=== PATIENT | female | born 1960 | race Caucasian/White ===

== ENCOUNTER → 2017-11-25 | Outpatient (CLI) | payer MEDICAID ==
[~2017-11-25] MED LIST: ALBU2.5V4 NEB; AMIT100T2 PO; ASPI-875 PO; ATEN100T PO; ATEN50TA PO; AZIT250T12 PO; AZIT500T PO; BUME1TAB4 PO; CEFD300C3 PO; CLON1TAB3 PO; CLON1TAB4 PO; CYCL10TA9 PO; DCS100C PO; DESV100T PO; DOCU100T7 PO; ESCI20TA2 PO; ESCI20TA38 PO; ESCI20TA45 PO; ESCI5TAB PO; ESCT10T PO; FURO20TA4 PO; FURO40TA4 PO; GABA600T2 PO; GBPN300C PO; GBPN600T PO; LORA0.5T PO; MORP100C16 PO; MORP100T PO; MORP100T37 PO; MORP100T8 PO; MORP15TA8 PO; MORP30TA PO; MORPHINE PO; POTA10CA43 PO; POTA10TA10 PO; POTA8TAB PO; PRD20T PO; PRED10TA22 PO; RT-ALBUINH INH; SIMV20TA3 PO; TOPI50TA2 PO; TRIH2TAB2 PO; VARE0.5T PO; VARE1TAB17 PO; ZLP10T PO; ZLP5T PO; ZOLP10TA PO; ZOLP10TA5 PO
--- NOTE | 2017-11-25 17:54 | Diagnostic Imaging Report ---
CLINICAL INDICATION: Patient with ovarian cancer five years ago and had a had a recent bleeding episode a day ago. Patient has history of hysterectomy and bilateral oophorectomy. EXAM: Transabdominal and transvaginal ultrasound of the pelvis. COMPARISON: None. FINDINGS AND IMPRESSION: Evaluation of the pelvis shows no significant abnormality as visualized. There is trace free fluid in the pelvis. There is no evidence of mass seen on this ultrasound exam. Dictated by: Dictated on workstation # [id number]
== END ==
LOC: RAD 15:15
PROVIDERS: ATTEND Nurse Practitioner Family
DX: N93.9 Abnormal uterine and vaginal bleeding, unspecified (principal); Z90.710 Acquired absence of both cervix and uterus; Z90.722 Acquired absence of ovaries, bilateral; Z85.43 Personal history of malignant neoplasm of ovary
CPT/HCPCS: 76830; 76856

== ENCOUNTER → 2018-01-22 | Outpatient (CLI) | payer MEDICAID ==
[~2018-01-22] MED LIST changes: +CLON1TAB13 PO; -CLON1TAB4 PO
== END ==
LOC: CARD 13:29
PROVIDERS: ATTEND Pediatrics
DX: G47.33 Obstructive sleep apnea (adult) (pediatric) (principal); I35.0 Nonrheumatic aortic (valve) stenosis
CPT/HCPCS: 93306

== ENCOUNTER 2018-05-17 08:11 | Emergency (ER) | payer MEDICAID ==
[~2018-05-17] VITALS: Ht 170.2 cm; Wt 135.2 kg
--- OUTSIDE RECORDS SUMMARY | 2018-05-17 08:19 | XMS REPORT | Continuity of Care Document ---
Author Author [facility] Organization [facility] Address Unknown Phone Unavailable Allergies Active Description Code Type Severity Reaction Onset Reported/Identified Relationship to Patient Clinical Status Yes No Known Drug Allergies [id number] Drug Allergy Unknown N/A 08/23/2007 Medications There is no data. Problems Date Dx Coded Attending Type Code Diagnosis Diagnosed By 02/03/2013 JANETHNDER DOFREIDAPATTI S Ot 272.4 HYPERLIPIDEMIA NEC/NOS 02/03/2013 JANETHNDER DO PATTI S Ot 276.8 HYPOPOTASSEMIA 02/03/2013 JANETHNDER DO PATTI S Ot 300.00 ANXIETY STATE NOS 02/03/2013 ORENDER DO PATTI S Ot 305.1 TOBACCO USE DISORDER 02/03/2013 ORENDER DO, PATTI S Ot 311 DEPRESSIVE DISORDER NEC 02/03/2013 JANETHNDER DO, PATTI S Ot 338.4 CHRONIC PAIN SYNDROME 02/03/2013 ORENDER DO, PATTI S Ot 401.9 HYPERTENSION NOS 02/03/2013 ORENDER DO, PATTI S Ot 486 PNEUMONIA, ORGANISM NOS 02/03/2013 JANETHNDER DO, PATTI S Ot 491.22 OBSTRUCTIVE CHRONIC BRONCHITIS WITH ACUT 02/03/2013 ORENDER DO, PATTI S Ot 518.81 ACUTE RESPIRATORY FAILURE 02/03/2013 JANETHNDER DO, PATTI S Ot 530.81 ESOPHAGEAL REFLUX 02/03/2013 JANETHNDER DO, PATTI S Ot 564.00 UNSPEC CONSTIPATION 02/03/2013 JANETHNDER DO PATTI S Ot 715.90 OSTEOARTHROS NOS-UNSPEC 02/03/2013 JANETHNDER DO PATTI S Ot 724.5 BACKACHE NOS 02/03/2013 JANETHNDISIS DO PATTI S Ot V58.69 OTH MED,LT,CURRENT USE 05/07/2013 VINAYAK PUENTE MD Ot 272.0 PURE HYPERCHOLESTEROLEM 05/07/2013 VINAYAK PUENTE MD Ot 272.4 HYPERLIPIDEMIA NEC/NOS 05/07/2013 VINAYAK PUENTE MD Ot 278.00 OBESITY, NOS 05/07/2013 VINAYAK PUENTE MD Ot 300.00 ANXIETY STATE NOS 05/07/2013 VINAYAK PUENTE MD Ot 305.1 TOBACCO USE DISORDER 05/07/2013 VINAYAK PUENTE MD Ot 311 DEPRESSIVE DISORDER NEC 05/07/2013 VINAYAK PUENTE MD Ot 327.23 OBSTRUCTIVE SLEEP APNEA (ADULT) (PEDIATR 05/07/2013 VINAYAK PUENTE MD Ot 338.4 CHRONIC PAIN SYNDROME 05/07/2013 VINAYAK PUENTE MD Ot 401.9 HYPERTENSION NOS 05/07/2013 VINAYAK PUENTE MD Ot 496 CHR AIRWAY OBSTRUCT NEC 05/07/2013 VINAYAK PUENTE MD Ot 518.0 PULMONARY COLLAPSE 05/07/2013 VINAYAK PUNETE MD Ot 518.84 ACUTE AND CHRONIC RESPIRATORY FAILURE 05/07/2013 VINAYAK PUENTE MD Ot 530.81 ESOPHAGEAL REFLUX 05/07/2013 VINAYAK PUENTE MD Ot 564.09 OTHER CONSTIPATION 05/07/2013 VINAYAK PUENTE MD Ot 715.90 OSTEOARTHROS NOS-UNSPEC 05/07/2013 VINAYAK PUENTE MD Ot 724.2 LUMBAGO 05/07/2013 VINAYAK PUENTE MD Ot V04.81 ND FOR PROPHYLACTIC VACCIN AND INOCULATI 05/07/2013 VINAYAK PUENTE MD Ot V85.41 BODY MASS INDEX 40.0-44.9, ADULT 06/19/2014 WANDY MUNOZ Ot 724.2 LUMBAGO 06/19/2014 WANDY MUNOZ Ot 782.3 EDEMA 01/18/2015 MELLISA NOBLE MD Ot 300.00 ANXIETY STATE NOS 01/18/2015 MELLISA NOBLE MD Ot 786.05 SHORTNESS OF BREATH 01/30/2016 JAROCHO NAQVI DO Ot I10 ESSENTIAL (PRIMARY) HYPERTENSION 01/30/2016 JAROCHO NAQVI DO Ot J44.9 CHRONIC OBSTRUCTIVE PULMONARY DISEASE, U 01/30/2016 JAROCHO NAQVI DO Ot 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 02/09/2016 TYLOR DOBBS DO Ot E87.6 HYPOKALEMIA 02/09/2016 TYLOR DOBBS DO Ot F32.9 MAJOR DEPRESSIVE DISORDER, SINGLE EPISOD 02/09/2016 DOBBS DO, TYLOR Ot F41.0 PANIC DISORDER WITHOUT AGORAPHOBIA 02/09/2016 DILIA YAÑEZ TYLOR Ot I12.9 HYPERTENSIVE CHRONIC KIDNEY DISEASE W ST 02/09/2016 GLENN DOBBS DOI Ot J44.1 CHRONIC OBSTRUCTIVE PULMONARY DISEASE W 02/09/2016 GLENN DOBBS DOI Ot K59.00 CONSTIPATION, UNSPECIFIED 02/09/2016 DILIA YAÑEZ TYLOR Ot M17.0 BILATERAL PRIMARY OSTEOARTHRITIS OF KNEE 02/09/2016 DILIA YAÑEZ TYLOR Ot N18.9 CHRONIC KIDNEY DISEASE, UNSPECIFIED 02/09/2016 DILIA YAÑEZ TYLOR Ot Z23 ENCOUNTER FOR IMMUNIZATION 11/26/2017 RHETT RODRIGUEZ RN RESEARCH Ot N93.9 ABNORMAL UTERINE AND VAGINAL BLEEDING, U 11/26/2017 RHETT RODRIGUEZ RN RESEARCH Ot Z85.43 PERSONAL HISTORY OF MALIGNANT NEOPLASM O 11/26/2017 RHETT RODRIGUEZ RN RESEARCH Ot Z90.710 ACQUIRED ABSENCE OF BOTH CERVIX AND UTER 11/26/2017 RHETT RODRIGUEZ RN RESEARCH Ot Z90.722 ACQUIRED ABSENCE OF OVARIES, BILATERAL 11/26/2017 RHETT RODRIGUEZ RN RESEARCH Ot N93.9 ABNORMAL UTERINE AND VAGINAL BLEEDING, U 11/26/2017 RHETT RODRIGUEZ RN RESEARCH Ot Z85.43 PERSONAL HISTORY OF MALIGNANT NEOPLASM O 11/26/2017 RHETT RODRIGUEZ RN RESEARCH Ot Z90.710 ACQUIRED ABSENCE OF BOTH CERVIX AND UTER 11/26/2017 RHETT RODRIGUEZ RN RESEARCH Ot Z90.722 ACQUIRED ABSENCE OF OVARIES, BILATERAL 01/26/2018 LUIS TILLMAN, DEBRA Martin Ot G47.33 OBSTRUCTIVE SLEEP APNEA (ADULT) (PEDIATR 01/26/2018 DEBRA SMITH MD Ot I35.0 NONRHEUMATIC AORTIC (VALVE) STENOSIS 02/03/2018 DEBRA SMITH MD Ot G47.33 OBSTRUCTIVE SLEEP APNEA (ADULT) (PEDIATR 02/03/2018 DEBRA SMITH MD Ot I35.0 NONRHEUMATIC AORTIC (VALVE) STENOSIS Procedures There is no data. Results Test Result Range Complete blood count (CBC) with automated white blood cell (WBC) differential - 02/07/16 17:10 Blood leukocytes automated count (number/volume) 5.4 10*3/uL 4.3-11.0 Blood erythrocytes automated count (number/volume) 5.21 10*6/uL 4.35-5.85 Venous blood hemoglobin measurement (mass/volume) 14.0 g/dL 11.5-16.0 Blood hematocrit (volume fraction) 41 % 35-52 Automated erythrocyte mean corpuscular volume 78 [foz_us] 80-99 Automated erythrocyte mean corpuscular hemoglobin (mass per erythrocyte) 27 pg 25-34 Automated erythrocyte mean corpuscular hemoglobin concentration measurement ( mass/volume) 34 g/dL 32-36 Automated erythrocyte distribution width ratio 13.7 % 10.0-14.5 Automated blood platelet count (count/volume) 169 10*3/uL 130-400 Automated blood platelet mean volume measurement 10.8 [foz_us] 7.4-10.4 Automated blood neutrophils/100 leukocytes 50 % 42-75 Automated blood lymphocytes/100 leukocytes 34 % 12-44 Blood monocytes/100 leukocytes 9 % 0-12 Automated blood eosinophils/100 leukocytes 7 % 0-10 Automated blood basophils/100 leukocytes 1 % 0-10 Blood neutrophils automated count (number/volume) 2.7 10*3 1.8-7.8 Blood lymphocytes automated count (number/volume) 1.8 10*3 1.0-4.0 Blood monocytes automated count (number/volume) 0.5 10*3 0.0-1.0 Automated eosinophil count 0.4 10*3/uL 0.0-0.3 Automated blood basophil count (count/volume) 0.1 10*3/uL 0.0-0.1 Comprehensive metabolic panel - 02/07/16 17:10 Serum or plasma sodium measurement (moles/volume) 139 mmol/L 135-145 Serum or plasma potassium measurement (moles/volume) 3.5 mmol/L 3.6-5.0 Serum or plasma chloride measurement (moles/volume) 105 mmol/L 98-107 Carbon dioxide 23 mmol/L 21-32 Serum or plasma anion gap determination (moles/volume) 11 mmol/L 5-14 Serum or plasma urea nitrogen measurement (mass/volume) 10 mg/dL 7-18 Serum or plasma creatinine measurement (mass/volume) 1.33 mg/dL 0.60-1.30 Serum or plasma urea nitrogen/creatinine mass ratio 8 NRG Serum or plasma creatinine measurement with calculation of estimated glomerular filtration rate 42 NRG Serum or plasma glucose measurement (mass/volume) 95 mg/dL 70-105 Serum or plasma calcium measurement (mass/volume) 9.1 mg/dL 8.5-10.1 Serum or plasma total bilirubin measurement (mass/volume) 0.6 mg/dL 0.1-1.0 Serum or plasma alkaline phosphatase measurement (enzymatic activity/volume) 83 U/L 40-136 Serum or plasma aspartate aminotransferase measurement (enzymatic activity/ volume) 30 U/L 5-34 Serum or plasma alanine aminotransferase measurement (enzymatic activity/volume ) 38 U/L 0-55 Serum or plasma protein measurement (mass/volume) 6.9 g/dL 6.4-8.2 Serum or plasma albumin measurement (mass/volume) 4.3 g/dL 3.2-4.5 LIPID PANEL - 05/22/17 10:55 CHOLESTEROL, TOTAL 134 mg/dL <200 HDL CHOLESTEROL 27 mg/dL >50 TRIGLYCERIDES 226 mg/dL <150 LDL-CHOLESTEROL 76 mg/dL (calc) NRG CHOL/HDLC RATIO 5.0 (calc) <5.0 NON HDL CHOLESTEROL 107 mg/dL (calc) <130 CMP - 05/22/17 10:55 GLUCOSE 90 mg/dL 65-99 UREA NITROGEN (BUN) 5 mg/dL 7-25 CREATININE 1.06 mg/dL 0.50-1.05 eGFR NON-AFR. AUSTRIAN 59 mL/min/1.73m2 > OR=60 eGFR 69 mL/min/1.73m2 > OR=60 BUN/CREATININE RATIO 5 (calc) 6-22 SODIUM 140 mmol/L 135-146 POTASSIUM 4.0 mmol/L 3.5-5.3 CHLORIDE 95 mmol/L 98-110 CARBON DIOXIDE 37 mmol/L 20-31 CALCIUM 9.5 mg/dL 8.6-10.4 PROTEIN, TOTAL 6.8 g/dL 6.1-8.1 ALBUMIN 4.3 g/dL 3.6-5.1 GLOBULIN 2.5 g/dL (calc) 1.9-3.7 ALBUMIN/GLOBULIN RATIO 1.7 (calc) 1.0-2.5 BILIRUBIN, TOTAL 0.6 mg/dL 0.2-1.2 ALKALINE PHOSPHATASE 87 U/L 33-130 AST 33 U/L 10-35 ALT 36 U/L 6-29 CBC - 05/22/17 10:55 WHITE BLOOD CELL COUNT 5.9 Thousand/uL 3.8-10.8 RED BLOOD CELL COUNT 4.85 Million/uL 3.80-5.10 HEMOGLOBIN 13.0 g/dL 11.7-15.5 HEMATOCRIT 40.9 % 35.0-45.0 MCV 84.3 fL 80.0-100.0 MCH 26.8 pg 27.0-33.0 MCHC 31.8 g/dL 32.0-36.0 RDW 13.1 % 11.0-15.0 PLATELET COUNT 161 Thousand/uL 140-400 MPV 11.7 fL 7.5-12.5 ABSOLUTE NEUTROPHILS 2974 cells/uL 1347-5824 ABSOLUTE LYMPHOCYTES 1988 cells/uL 850-3900 ABSOLUTE MONOCYTES 478 cells/uL 200-950 ABSOLUTE EOSINOPHILS 389 cells/uL 15-500 ABSOLUTE BASOPHILS 71 cells/uL 0-200 NEUTROPHILS 50.4 % NRG LYMPHOCYTES 33.7 % NRG MONOCYTES 8.1 % NRG EOSINOPHILS 6.6 % NRG BASOPHILS 1.2 % NRG THYROID ANALYZER - 05/22/17 10:55 TSH 2.48 mIU/L NRG VITAMIN D, 25-H - 05/22/17 10:55 VITAMIN D,25-OH,TOTAL,IA 29 ng/mL 30-100 A1C - 05/22/17 10:55 HEMOGLOBIN A1c 5.3 % of total Hgb <5.7 PDM - 09 PANEL (PROFILE 1) - 10/21/17 16:01 Prescribed Drug 1 Morphine NRG Creatinine 43.8 mg/dL > or=20.0 pH 5.53 4.5 - 9.0 Oxidant NEGATIVE mcg/mL <200 Amphetamines NEGATIVE ng/mL <500 medMATCH Amphetamines CONSISTENT NRG Benzodiazepines POSITIVE ng/mL <100 Marijuana Metabolite NEGATIVE ng/mL <20 medMATCH Marijuana Metab CONSISTENT NRG Cocaine Metabolite NEGATIVE ng/mL <150 medMATCH Cocaine Metab CONSISTENT NRG Opiates POSITIVE ng/mL <100 Oxycodone NEGATIVE ng/mL <100 medMATCH Oxycodone CONSISTENT NRG COMMENT NRG Alphahydroxyalprazolam NEGATIVE ng/mL <25 medMATCH aOH alprazolam CONSISTENT NRG Alphahydroxymidazolam NEGATIVE ng/mL <50 medMATCH aOH midazolam CONSISTENT NRG Alphahydroxytriazolam NEGATIVE ng/mL <50 medMATCH aOH triazolam CONSISTENT NRG Aminoclonazepam 411 ng/mL <25 medMATCH Aminoclonazepam INCONSISTENT NRG Hydroxyethylflurazepam NEGATIVE ng/mL <50 medMATCH OH,Et flurazepam CONSISTENT NRG Lorazepam NEGATIVE ng/mL <50 medMATCH Lorazepam CONSISTENT NRG Nordiazepam NEGATIVE ng/mL <50 medMATCH Nordiazepam CONSISTENT NRG Oxazepam NEGATIVE ng/mL <50 medMATCH Oxazepam CONSISTENT NRG Temazepam NEGATIVE ng/mL <50 medMATCH Temazepam CONSISTENT NRG Codeine NEGATIVE ng/mL <50 medMATCH Codeine CONSISTENT NRG Hydrocodone NEGATIVE ng/mL <50 medMATCH Hydrocodone CONSISTENT NRG Hydromorphone 375 ng/mL <50 medMATCH Hydromorphone CONSISTENT NRG Morphine >97524 ng/mL <50 medMATCH Morphine CONSISTENT NRG Norhydrocodone NEGATIVE ng/mL <50 medMATCH Norhydrocodone CONSISTENT NRG Prescribed Drug 2 Morphine NRG Prescribed Drug 3 Morphine NRG Barbiturates NEGATIVE ng/mL <300 medMATCH Barbiturates CONSISTENT NRG Methadone Metabolite NEGATIVE ng/mL <100 medMATCH Methadone Metab CONSISTENT NRG Phencyclidine NEGATIVE ng/mL <25 medMATCH Phencyclidine CONSISTENT NRG CA 125 - 10/23/17 12:50 CA 125 TNP U/mL NRG CA 125 - 10/23/17 13:09 CA 125 3 U/mL <35 CULTURE, URINE - 11/06/17 16:50 CULTURE, URINE, ROUTINE SEE NOTE NRG CBC - 11/16/17 14:13 WHITE BLOOD CELL COUNT 6.3 Thousand/uL 3.8-10.8 RED BLOOD CELL COUNT 4.16 Million/uL 3.80-5.10 HEMOGLOBIN 11.4 g/dL 11.7-15.5 HEMATOCRIT 35.3 % 35.0-45.0 MCV 84.9 fL 80.0-100.0 MCH 27.4 pg 27.0-33.0 MCHC 32.3 g/dL 32.0-36.0 RDW 12.7 % 11.0-15.0 PLATELET COUNT 184 Thousand/uL 140-400 MPV 11.0 fL 7.5-12.5 ABSOLUTE NEUTROPHILS 3131 cells/uL 4290-4153 ABSOLUTE LYMPHOCYTES 2394 cells/uL 850-3900 ABSOLUTE MONOCYTES 422 cells/uL 200-950 ABSOLUTE EOSINOPHILS 290 cells/uL 15-500 ABSOLUTE BASOPHILS 63 cells/uL 0-200 NEUTROPHILS 49.7 % NRG LYMPHOCYTES 38.0 % NRG MONOCYTES 6.7 % NRG EOSINOPHILS 4.6 % NRG BASOPHILS 1.0 % NRG Encounters ACCT No. Visit Date/Time Discharge Status Pt. Type Provider Facility Loc./Unit Complaint [id number] 02/02/2018 10:25:00 02/02/2018 23:59:59 CLS Preadmit DEBRA SMITH MD [facility] SLEEP OBSTRUCTIVE SLEEP APNEA [id number] 01/22/2018 13:29:00 01/22/2018 23:59:59 CLS Outpatient DEBRA SMITH MD [facility] CARD OBSTRUCTIVE SLEEP APNEA SYNDROME [id number] 11/25/2017 15:15:00 11/25/2017 23:59:59 CLS Outpatient RHETT RODRIGUEZ RN RESEARCH [facility] RAD ABN VAGINAL BLEEDING [id number] 02/07/2016 21:00:00 02/09/2016 14:34:00 DIS Inpatient TYLOR DOBBS DO [facility] 4TH COPD EXACERBATION WITH HYPOXIA [id number] 01/30/2016 03:56:00 01/30/2016 04:11:00 DIS Emergency JAROCHO NAQVI DO [facility] ER COPD [id number] 01/18/2015 07:40:00 01/18/2015 10:42:00 DIS Emergency MELLISA NOBLE MD [facility] ER SOA [id number] 06/19/2014 21:14:00 06/19/2014 23:15:00 DIS Emergency WANDY MUNOZ [facility] ER BILAT LEG/ANKLE SWELLING [id number] 05/05/2013 19:24:00 05/07/2013 14:25:00 DIS Inpatient VINAYAK PUENTE MD [facility] 4TH RESPIRATORY FAILURE, COPD EXACERBATION [id number] 01/31/2013 08:37:00 02/03/2013 13:08:00 DIS Inpatient PATTI SWIFT DO [facility] 4TH ACUTE RESPIRATORY FAILURE COPD EXACERBATION [id number] 05/14/2018 14:30:00 ACT Outpatient LUIS TILLMAN, DEBRA Martin [facility] [id number] 11/16/2017 16:40:00 Document Registration [id number] 11/06/2017 10:35:00 Document Registration [id number] 10/23/2017 12:50:00 Document Registration [id number] 10/23/2017 11:35:00 Document Registration [id number] 10/21/2017 14:40:00 Document Registration [id number] 05/22/2017 11:00:00 Document Registration
--- NOTE | 2018-05-17 08:20 | ED Respiratory ---
General Stated Complaint: SOA Source: patient Exam Limitations: no limitations History of Present Illness Date Seen by Provider: May 17, 2018 Time Seen by Provider: 08:08 Initial Comments Patient presents the ER by EMS with chief complaint for the past through to 3 days she's had worsening shortness of breath, coughing productive of sputum. EMS reports he got up walked out to the por to get onto their gurney. She is not seeing anybody for this. She has a history of COPD and on baseline 2 L oxygen by nasal cannula satting at 98%. She does not know she had a fever or chills. She says she's been using her rescue inhaler about twice a day for the past couple days. Her last dose was around 5:00 this morning, 3 hours ago. She' s not having any pain anywhere and denies nausea, diarrhea or constipation. She' s not been on antibiotics or steroids the past 6 months. Allergies and Home Medications Allergies Coded Allergies: No Known Drug Allergies (Verified , 08/23/07) Home Medications Albuterol Sulfate 2.5 Mg/3 Ml Vial.neb, 2.5 MG NEB Q4H PRN for SHORTNESS OF BREATH, (Reported) Albuterol Sulfate 8.5 Gm Hfa.aer.ad, 2 PUFF INH Q4H PRN for SHORTNESS OF BREATH, (Reported) Amitriptyline HCl 100 Mg Tablet, 100 MG PO HS, (Reported) Atenolol 50 Mg Tablet, 50 MG PO BID, (Reported) Azithromycin 250 Mg Tablet, 250 MG PO DAILY Prescribed by: TYLOR DOBBS on 02/09/16 1218 Clonazepam 1 Mg Tablet, 1 MG PO TID, (Reported) Cyclobenzaprine HCl 10 Mg Tablet, 10 MG PO TID, (Reported) Docusate Sodium 100 Mg Tablet, 100 MG PO DAILY, (Reported) Escitalopram Oxalate 20 Mg Tablet, 20 MG PO BID, (Reported) Furosemide 40 Mg Tablet, 40 MG PO DAILY PRN for SWELLING, (Reported) Gabapentin 600 Mg Tablet, 600 MG PO TID PRN for PAIN, (Reported) Morphine Sulfate 100 Mg Tablet.er, 100 MG PO Q8H, (Reported) Morphine Sulfate 30 Mg Tablet, 30 MG PO TID PRN for BREAKTHROUGH PAIN, (Reported ) Potassium Chloride 10 Meq Tablet.er, 10 MEQ PO DAILY PRN for WHEN TAKING FUROSEMIDE, (Reported) Prednisone 10 Mg Tab.ds.pk, 10 MG PO DAILY Take 6 tabs(60mg)daily,decrease by 1 tab(10MG)daily. Prescribed by: TYLOR DOBBS on 02/09/16 1218 Simvastatin 20 Mg Tablet, 20 MG PO HS, (Reported) LAST FILLED #30 10-16-15 Zolpidem Tartrate 10 Mg Tablet, 10 MG PO HS PRN for SLEEP, (Reported) Patient Home Medication List Home Medication List Reviewed: Yes Review of Systems Review of Systems Constitutional: No chills, No diaphoresis, No fever EENTM: No ear discharge, No hearing loss, No ear pain Respiratory: cough, phlegm, short of breath, wheezing Cardiovascular: No chest pain, No edema Gastrointestinal: No abdominal pain, No constipation Genitourinary: No discharge, No dysuria : No Musculoskeletal: No back pain, No joint pain Past Flhettu-Okqesh-Tohsyu Hx Patient Social History Alcohol Use: Denies Use Recreational Drug Use: No Smoking Status: Current Everyday Smoker Former Smoker, Quit: May 11, 2012 Recent Hopitalizations: No Immunizations Up To Date PED Vaccines UTD: Yes Date of Pneumonia Vaccine: Apr 10, 2013 Date of Influenza Vaccine: May 07, 2013 Seasonal Allergies Seasonal Allergies: Yes Past Medical History Section, Hysterectomy, Orthopedic COPD Currently Using CPAP: No Currently Using BIPAP: No High Cholesterol, Hypertension Neuropathy Reproductive Disorders: No Female Reproductive Disorders: Denies CLIMBING GUIDE History: Hysterectomy Sexually Transmitted Disease: No HIV/AIDS: No UTI-Chronic Chronic Constipation Arthritis, Chronic Back Pain Loss of Vision: Denies Hearing Impairment: Denies Ovarian Anxiety, Bipolar, Depression Family Medical History Cancer 03 MOTHER, Onset:40's - 50 09 SISTER, Onset:25's - 30 Family history: Hypertension 03 FATHER, Onset:40's - 50 03 MOTHER, Onset:40's - 50 No Family History of: Chest pain Congenital heart disease Congestive heart failure Dementia Family history: Alzheimer's disease Family history: Diabetes mellitus No Pertinent Family Hx Physical Exam Vital Signs - First Documented 05/17/18 08:25 Temp 101.1 Pulse 85 Resp 20 B/P (MAP) 141/89 (106) Pulse Ox 97 O2 Delivery Nasal Cannula O2 Flow Rate 2.00 Capillary Refill : Height: 5'7.00" Weight: 250lbs. 1.0oz. 113.750198ce; 39.2 BMI Method:Stated General Appearance: WD/WN, mild distress, obese Eyes: Bilateral Eye Normal Inspection, Bilateral Eye PERRL, Bilateral Eye EOMI HEENT: PERRL/EOMI, normal ENT inspection, TMs normal, pharynx normal Respiratory: no respiratory distress, no accessory muscle use, rhonchi, wheezing Cardiovascular: normal peripheral pulses, regular rate, rhythm, no edema Gastrointestinal: normal bowel sounds, non tender, soft Neurologic/Psychiatric: alert, normal mood/affect, oriented x 3 Skin: normal color, warm/dry Progress/Results/Core Measures Suspected Sepsis SIRS Temperature: Pulse: Respiratory Rate: Laboratory Tests 05/17/18 08:38: White Blood Count 6.8 Blood Pressure / Mean: Laboratory Tests 05/17/18 08:38: Creatinine 1.08, Platelet Count 156, Total Bilirubin 0.5 Results/Orders Lab Results Laboratory Tests Test 05/17/18 08:38 Range/Units White Blood Count 6.8 4.3-11.0 10^3/uL Red Blood Count 4.35 4.35-5.85 10^6/uL Hemoglobin 11.4 L 11.5-16.0 G/DL Hematocrit 37 35-52 % Mean Corpuscular Volume 85 80-99 FL Mean Corpuscular Hemoglobin 26 25-34 PG Mean Corpuscular Hemoglobin Concent 31 L 32-36 G/DL Red Cell Distribution Width 14.4 10.0-14.5 % Platelet Count 156 130-400 10^3/uL Mean Platelet Volume 11.0 H 7.4-10.4 FL Neutrophils (%) (Auto) 73 42-75 % Lymphocytes (%) (Auto) 15 12-44 % Monocytes (%) (Auto) 9 0-12 % Eosinophils (%) (Auto) 3 0-10 % Basophils (%) (Auto) 1 0-10 % Neutrophils # (Auto) 5.0 1.8-7.8 X 10^3 Lymphocytes # (Auto) 1.0 1.0-4.0 X 10^3 Monocytes # (Auto) 0.6 0.0-1.0 X 10^3 Eosinophils # (Auto) 0.2 0.0-0.3 10^3/uL Basophils # (Auto) 0.0 0.0-0.1 10^3/uL Sodium Level 137 135-145 MMOL/L Potassium Level 4.2 3.6-5.0 MMOL/L Chloride Level 102 98-107 MMOL/L Carbon Dioxide Level 25 21-32 MMOL/L Anion Gap 10 5-14 MMOL/L Blood Urea Nitrogen 10 7-18 MG/DL Creatinine 1.08 0.60-1.30 MG/DL Estimat Glomerular Filtration Rate 53 BUN/Creatinine Ratio 9 Glucose Level 101 70-105 MG/DL Calcium Level 9.1 8.5-10.1 MG/DL Corrected Calcium 9.1 8.5-10.1 MG/DL Total Bilirubin 0.5 0.1-1.0 MG/DL Aspartate Amino Transf (AST/SGOT) 50 H 5-34 U/L Alanine Aminotransferase (ALT/SGPT) 61 H 0-55 U/L Alkaline Phosphatase 81 40-136 U/L Total Protein 7.1 6.4-8.2 GM/DL Albumin 4.0 3.2-4.5 GM/DL Micro Results Microbiology 05/17/18 Influenza Types A,B Antigen ([facility]) - Final, Complete My Orders Orders - FRANSISCA DOSS Cbc With Automated Diff (05/17/18 08:16) Comprehensive Metabolic Panel (05/17/18 08:16) Influenza A And B Antigens (05/17/18 08:16) Chest Pa/Lat (2 View) (05/17/18 08:16) Albuterol/Ipra Inhalation Soln (Duoneb I (05/17/18 08:30) Svn Small Volume Nebulizer (05/17/18 08:16) Medications Given in ED Current Medications Medications Dose Ordered Sig/Nathanael Route Start Time Stop Time Status Last Admin Dose Admin Albuterol/ Ipratropium 3 ml ONCE ONCE INH 05/17/18 08:30 05/17/18 08:31 DC 05/17/18 08:31 3 ML Vital Signs/I&O 05/17/18 05/17/18 08:25 08:33 Temp 101.1 Pulse 85 Resp 20 B/P (MAP) 141/89 (106) Pulse Ox 97 96 O2 Delivery Nasal Cannula Nasal Cannula O2 Flow Rate 2.00 2.00 Capillary Refill : Progress Note : Time: 09:39 Progress Note Patient's oxygen saturations are in the upper 90s on her baseline O2. Chest x- ray and labs confirm bronchitis. Her fever is probably due to the viral bronchitis. Negative for flu. She has improved breath sounds after nebulizer. Plan to send her home with humidifier, vapor rubs and increased use of her albuterol. Symptomatic support. Diagnostic Imaging Diagonstic Imaging: Xray Plain Films/CT/US/NM/MRI: chest Comments NAME: KIERAN HAINES [facility] REC#: [id number] PT STATUS: REG ER : 1960 PHYSICIAN: FRANSISCA DOSS MD ADMIT DATE: 05/17/18/ER Draft Date of Exam:05/17/18 CHEST PA/LAT (2 VIEW) INDICATION: Shortness of breath x 2 days. Cough. Chest congestion. TECHNIQUE: PA and lateral views of the chest were obtained at 9:30 AM. COMPARISON: 02/07/2016. FINDINGS: The heart and mediastinal silhouette are normal in appearance. The lungs appear clear. There is some peribronchial thickening. There is no pneumothorax or pleural fluid. IMPRESSION: Normal heart size. There is some peribronchial thickening but no focal consolidation, pneumothorax, or pleural fluid. Dictated on workstation # [id number] Dict: 05/17/18 0916 Trans: 05/17/18 0935 [id number] Interpreted by: IRASEMA KUMAR MD Electronically signed by: Reviewed: Reviewed by Me Departure Impression Primary Impression: COPD (chronic obstructive pulmonary disease) with acute bronchitis Disposition: HOME, SELF-CARE Condition: Stable Departure-Patient Inst. Decision time for Depature: 09:44 Referrals: DEBRA NIXON MD Patient Instructions: Acute Bronchitis, Adult (DC) Add. Discharge Instructions: Use vapor rubs such as Vicks or Mentholatum and humidifiers. Tylenol and Motrin for fever or misery. Use your albuterol inhaler 4 times a day [id number] for the next several days. Follow-up with primary care in the next 1-2 weeks. FRANSISCA DOSS May 17, 2018 08:20
[2018-05-17] MEDS ORDERED: RT-ALBUTEROL/IPRATROPIUM 3 ML (DUONEB) VIAL INH ONE (08:30)
[2018-05-17 08:44] LABS: BASOPHILS % (AUTO) 1 % (0-10); EOSINOPHILS # (AUTO) 0.2 10^3/uL (0.0-0.3); EOSINOPHILS % (AUTO) 3 % (0-10); HEMATOCRIT 37 % (35-52); HEMOGLOBIN 11.4 G/DL (11.5-16.0); LYMPHOCYTES % (AUTO) 15 % (12-44); MEAN CORPUSCULAR HEMOGLOBIN 26 PG (25-34); MEAN CORPUSCULAR HGB CONC 31 G/DL (32-36); MEAN CORPUSCULAR VOLUME 85 FL (80-99); MONOCYTES # (AUTO) 0.6 X 10^3 (0.0-1.0); MONOCYTES % (AUTO) 9 % (0-12); NEUTROPHILS % (AUTO) 73 % (42-75); PLATELET COUNT 156 10^3/uL (130-400); RED BLOOD COUNT 4.35 10^6/uL (4.35-5.85); RED CELL DISTRIBUTION WIDTH 14.4 % (10.0-14.5); WHITE BLOOD COUNT 6.8 10^3/uL (4.3-11.0)
[2018-05-17 09:02] LABS: BILIRUBIN,TOTAL 0.5 MG/DL (0.1-1.0); CALCIUM 9.1 MG/DL (8.5-10.1); CREATININE SERUM 1.08 MG/DL (0.60-1.30); POTASSIUM 4.2 MMOL/L (3.6-5.0); TOTAL PROTEIN 7.1 GM/DL (6.4-8.2)
--- NOTE | 2018-05-17 09:35 | Diagnostic Imaging Report ---
INDICATION: Shortness of breath x 2 days. Cough. Chest congestion. TECHNIQUE: PA and lateral views of the chest were obtained at 9:30 AM. COMPARISON: 02/07/2016. FINDINGS: The heart and mediastinal silhouette are normal in appearance. The lungs appear clear. There is some peribronchial thickening. There is no pneumothorax or pleural fluid. IMPRESSION: Normal heart size. There is some peribronchial thickening but no focal consolidation, pneumothorax, or pleural fluid. Dictated by: Dictated on workstation # [id number]
[2018-05-17] MEDS ORDERED: IBUPROFEN 800 MG (MOTRIN) TAB PO ONE (09:45)
[2018-05-17 09:52] VITALS: BP 141/89
== END 2018-05-17 09:55 | disposition home or self-care (01) ==
LOC: EDUNIT# 08:11 → ER 08:12
DX: J44.9 Chronic obstructive pulmonary disease, unspecified (principal); E78.00 Pure hypercholesterolemia, unspecified; I10 Essential (primary) hypertension; F41.9 Anxiety disorder, unspecified; F31.9 Bipolar disorder, unspecified; Z82.49 Family history of ischemic heart disease and other diseases of the circulatory system; Z87.19 Personal history of other diseases of the digestive system; Z87.440 Personal history of urinary (tract) infections; Z90.710 Acquired absence of both cervix and uterus; Z79.51 Long term (current) use of inhaled steroids; Z87.891 Personal history of nicotine dependence; Z79.52 Long term (current) use of systemic steroids; Z99.81 Dependence on supplemental oxygen; Z98.890 Other specified postprocedural states
CPT/HCPCS: 36415; 71046; 80053; 85025; 87804; 94640

== ENCOUNTER 2020-04-02 10:59 | Emergency (ER) | payer MEDICAID ==
[~2020-04-02 10:59] MED LIST changes: -GABA600T2 PO; -MORP100T37 PO; +MORP100T47 PO; +SIMV20TA26 PO
== END 2020-04-02 11:34 | disposition left against medical advice (07) ==
LOC: EDUNIT# 10:59 → ER 11:00
DX: R06.02 Shortness of breath (principal); R50.9 Fever, unspecified

== ENCOUNTER 2020-08-15 06:04 | Emergency (ER) | payer MEDICAID ==
[~2020-08-15] VITALS: Ht 170.2 cm; Wt 135.5 kg
[~2020-08-15 06:04] MED LIST changes: +ESCI20TA39 PO; -ESCI20TA45 PO
[2020-08-15] MEDS ORDERED: RT-ALBUTEROL SULF 2.5 MG/3 ML PRE-MIX VIAL ONE (06:18)
[2020-08-15] MEDS ORDERED: RT-IPRATROPIUM (ATROVENT) 0.5MG/2.5ML AMP IH ONE (06:19)
--- NOTE | 2020-08-15 06:21 | ED Dyspnea ---
General Stated Complaint: ANXIETY,SOB Source of Information: Patient, EMS Exam Limitations: No Limitations History of Present Illness Date Seen by Provider: Aug 15, 2020 Time Seen by Provider: 06:03 Initial Comments Patient is a 60-year-old female who presents to the emergency department this morning by ambulance with a chief complaint of shortness of breath. Patient states that she has been short of breath for "3 months". Patient states that this morning she felt like she got worse. She states around 3 AM she became so short of breath that she did breathing treatments at home and then ultimately ended up calling the ambulance. She denies any recent fevers, chills. No productive cough but she does have a coarse cough. She denies chest pain, tightness or pressure. She denies abdominal pain, nausea, vomiting. Patient states that she has a headache when she coughs. She states that she is ambulatory at home. No history of blood clots. No history of coronary artery disease. The patient does take a "water pill" and supplemental potassium. She has a history of hypertension. Former smoker she quit 10 years ago but smoked for approximately 30 years. No sick contacts. Patient has had one of her Covid vaccinations (4 weeks ago) and did have a flu shot this year. Patient is complaining of body aches/muscle pain all over and rates it at a 3 or 4. All other review of systems reviewed and negative except as stated above. Timing/Duration: 4-6 Hours Severity: Severe Activities at Onset: None Prior Episodes/Possible Cause: Chronic Episodes Associated Symptoms: Anxiety Allergies and Home Medications Allergies Coded Allergies: No Known Drug Allergies (Verified , 08/23/07) Home Medications Albuterol Sulfate 2.5 Mg/3 Ml Vial.neb, 2.5 MG NEB Q4H PRN for SHORTNESS OF BREATH, (Reported) Albuterol Sulfate 8.5 Gm Hfa.aer.ad, 2 PUFF INH Q4H PRN for SHORTNESS OF BREATH, (Reported) Amitriptyline HCl 100 Mg Tablet, 100 MG PO HS, (Reported) Amoxicillin/Potassium Clav 1 Each Tablet, 1 EACH PO BID Prescribed by: THERESA COLLINS on 08/15/20 1055 Atenolol 50 Mg Tablet, 50 MG PO BID, (Reported) Azithromycin 250 Mg Tablet, 250 MG PO DAILY Prescribed by: TYLOR DOBBS on 02/09/16 1218 Benzonatate 100 Mg Capsule, 200 MG PO Q8H PRN for cough Prescribed by: THERESA COLLINS on 08/15/20 1055 Clonazepam 1 Mg Tablet, 1 MG PO TID, (Reported) Cyclobenzaprine HCl 10 Mg Tablet, 10 MG PO TID, (Reported) Docusate Sodium 100 Mg Tablet, 100 MG PO DAILY, (Reported) Doxycycline Hyclate 100 Mg Tablet, 100 MG PO BID Prescribed by: THERESA COLLINS on 08/15/20 1055 Escitalopram Oxalate 20 Mg Tablet, 20 MG PO BID, (Reported) Furosemide 40 Mg Tablet, 40 MG PO DAILY PRN for SWELLING, (Reported) Gabapentin 600 Mg Tablet, 600 MG PO TID PRN for PAIN, (Reported) Morphine Sulfate 100 Mg Tablet.er, 100 MG PO Q8H, (Reported) Morphine Sulfate 30 Mg Tablet, 30 MG PO TID PRN for BREAKTHROUGH PAIN, (Reported) Potassium Chloride 10 Meq Tablet.er, 10 MEQ PO DAILY PRN for WHEN TAKING FUROSEMIDE, (Reported) Prednisone 10 Mg Tab.ds.pk, 10 MG PO DAILY Take 6 tabs(60mg)daily,decrease by 1 tab(10MG)daily. Prescribed by: TYLOR DOBBS on 02/09/16 1218 Simvastatin 20 Mg Tablet, 20 MG PO HS, (Reported) LAST FILLED #30 10-16-15 Zolpidem Tartrate 10 Mg Tablet, 10 MG PO HS PRN for SLEEP, (Reported) Patient Home Medication List Home Medication List Reviewed: Yes Review of Systems Review of Systems Constitutional: see HPI EENTM: no symptoms reported Respiratory: cough, short of breath Cardiovascular: no symptoms reported Gastrointestinal: no symptoms reported Genitourinary: no symptoms reported : No Musculoskeletal: muscle cramps Skin: no symptoms reported Psychiatric/Neurological: Anxiety All Other Systems Reviewed Negative Unless Noted: Yes Past Cqjfcqu-Phdyqg-Vfmaos Hx Patient Social History Former Smoker, Quit: May 11, 2012 2nd Hand Smoke Exposure: No Recent Hopitalizations: No Immunizations Up To Date PED Vaccines UTD: Yes Date of Pneumonia Vaccine: Apr 10, 2013 Date of Influenza Vaccine: May 07, 2013 Seasonal Allergies Seasonal Allergies: Yes Past Medical History Surgeries: Yes (bilat knees, cyst removed from neck) Section, Hysterectomy, Orthopedic Respiratory: Yes COPD Currently Using CPAP: No Currently Using BIPAP: No Cardiac: Yes High Cholesterol, Hypertension Neurological: Yes Neuropathy Reproductive Disorders: No Female Reproductive Disorders: Denies 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 Sexually Transmitted Disease: No HIV/AIDS: No UTI-Chronic Gastrointestinal: Yes Chronic Constipation Musculoskeletal: Yes (CHRONIC BACK- SPINAL FUSION, KNEE AND FOOT PAIN) Arthritis, Chronic Back Pain Endocrine: No Loss of Vision: Denies Hearing Impairment: Denies Cancer: Yes Ovarian Psychosocial: Yes Anxiety, Bipolar, Depression Integumentary: No Blood Disorders: No Family Medical History Cancer 03 MOTHER, Onset:40's - 50 09 SISTER, Onset:25's - 30 Family history: Hypertension 03 FATHER, Onset:40's - 50 03 MOTHER, Onset:40's - 50 No Family History of: Chest pain Congenital heart disease Congestive heart failure Dementia Family history: Alzheimer's disease Family history: Diabetes mellitus No Pertinent Family Hx Physical Exam Vital Signs Vital Signs - First Documented 08/15/20 06:05 Temp 37.4 Pulse 96 Resp 28 B/P (MAP) 160/88 (112) Pulse Ox 93 O2 Delivery Nasal Cannula O2 Flow Rate 4.00 Capillary Refill : Height, Weight, BMI Height: 5'7.00" Weight: 298lbs. 0oz. 135.952328hi; 39.2 BMI Method:Stated General Appearance: WD/WN, Anxious, Moderate Distress HEENT: PERRL/EOMI Neck: Normal Inspection Respiratory: Chest Non Tender, Respiratory Distress (mild), Other (coarse breath sounds posteriorly R>L; no active wheezing; increased work of breathing; dyspnea with coarse cough) Cardiovascular: Regular Rate, Rhythm, Tachycardia Gastrointestinal: Non Tender, Soft, Other (morbid obesity) Extremity: Normal Capillary Refill, Normal Range of Motion, Non Tender, Other (negative kylah's) Neurologic/Psychiatric: Alert, Oriented x3, No Motor/Sensory Deficits, Normal Mood/Affect Skin: Normal Color, Warm/Dry Progress/Results/Core Measures Results/Orders Lab Results Laboratory Tests Test 08/15/20 06:34 08/15/20 06:39 08/15/20 10:10 Range/Units Blood Gas Puncture Site RIGHT RADIAL Blood Gas Patient Temperature 37.4 Arterial Blood pH 7.44 H 7.37-7.43 Arterial Blood Partial Pressure CO2 38 35-45 MMHG Arterial Blood Partial Pressure O2 69 L 79-93 MMHG Arterial Blood HCO3 25 23-27 MMOL/L Arterial Blood Total CO2 26.4 21.0-31.0 MMOL/L Arterial Blood Oxygen Saturation 93 L 94-100 % Arterial Blood Base Excess 1.6 -2.5-2.5 MMOL/L Refugio Test YES-POS Blood Gas Ventilator Setting NO Blood Gas Inspired Oxygen 4L White Blood Count 9.0 4.3-11.0 10^3/uL Red Blood Count 4.52 3.80-5.11 10^6/uL Hemoglobin 12.4 11.5-16.0 g/dL Hematocrit 40 35-52 % Mean Corpuscular Volume 89 80-99 fL Mean Corpuscular Hemoglobin 27 25-34 pg Mean Corpuscular Hemoglobin Concent 31 L 32-36 g/dL Red Cell Distribution Width 14.1 10.0-14.5 % Platelet Count 158 130-400 10^3/uL Mean Platelet Volume 10.8 9.0-12.2 fL Immature Granulocyte % (Auto) 1 % Neutrophils (%) (Auto) 82 H 42-75 % Lymphocytes (%) (Auto) 13 12-44 % Monocytes (%) (Auto) 3 0-12 % Eosinophils (%) (Auto) 1 0-10 % Basophils (%) (Auto) 0 0-10 % Neutrophils # (Auto) 7.4 1.8-7.8 10^3/uL Lymphocytes # (Auto) 1.2 1.0-4.0 10^3/uL Monocytes # (Auto) 0.3 0.0-1.0 10^3/uL Eosinophils # (Auto) 0.1 0.0-0.3 10^3/uL Basophils # (Auto) 0.0 0.0-0.1 10^3/uL Immature Granulocyte # (Auto) 0.1 0.0-0.1 10^3/uL D-Dimer 0.79 H 0.00-0.49 UG/ML Sodium Level 141 135-145 MMOL/L Potassium Level 3.8 3.6-5.0 MMOL/L Chloride Level 102 98-107 MMOL/L Carbon Dioxide Level 24 21-32 MMOL/L Anion Gap 15 H 5-14 MMOL/L Blood Urea Nitrogen 10 7-18 MG/DL Creatinine 1.29 0.60-1.30 MG/DL Estimat Glomerular Filtration Rate 42 BUN/Creatinine Ratio 8 Glucose Level 132 H 70-105 MG/DL Calcium Level 8.9 8.5-10.1 MG/DL Total Creatine Kinase 50 29-168 U/L Creatine Kinase MB 1.2 <6.6 NG/ML Troponin I < 0.028 <0.028 NG/ML Coronavirus 2019 ([facility]) Negative Negative My Orders Orders - THERESA COLLINS MD Cbc With Automated Diff (08/15/20 06:21) Basic Metabolic Panel (08/15/20 06:21) Arterial Blood Gas (08/15/20 06:21) Fibrin Degradation Products (08/15/20 06:21) Ekg Tracing (08/15/20 06:21) Chest 1 View, Ap/Pa Only (08/15/20 06:21) Creatine Kinase (08/15/20 06:21) Creatine Kinase Mb (08/15/20 06:21) Troponin I (08/15/20 06:21) Ed Iv/Invasive Line Start (08/15/20 06:21) Lorazepam Injection (Ativan Injection) (08/15/20 06:30) Albuterol Pre-Mix Nebs (Rt) (Proventil (08/15/20 06:18) Ipratropium 0.02% Neb Solution (Atrovent (08/15/20 06:19) Ns Iv 1000 Ml (Sodium Chloride 0.9%) (08/15/20 07:15) Methylprednisolone Sod Succ (Solu-Medrol (08/15/20 08:30) Ct Angio Chest W (08/15/20 09:00) Iohexol Injection (Omnipaque 350 Mg/Ml 1 (08/15/20 09:15) Received Contrast (Hold Metformin- Contr (08/15/20 09:15) Ns (Ivpb) (Sodium Chloride 0.9% Ivpb Bag (08/15/20 09:15) Covid 19 Inhouse Test (08/15/20 10:12) Ns Iv 500 Ml (Sodium Chloride 0.9%) (08/15/20 10:15) Medications Given in ED Vital Signs/I&O 08/15/20 08/15/20 08/15/20 08/15/20 06:05 06:38 07:42 09:03 Temp 37.4 Pulse 96 82 77 Resp 28 18 18 B/P (MAP) 160/88 (112) 94/44 (61) 121/62 (81) Pulse Ox 93 94 94 97 O2 Delivery Nasal Cannula Nasal Cannula Nasal Cannula Nasal Cannula O2 Flow Rate 4.00 4.00 3.00 3.00 08/15/20 12:11 Pulse 81 Resp 18 B/P (MAP) 140/68 Pulse Ox 98 O2 Delivery Nasal Cannula O2 Flow Rate 3.00 Progress Progress Note : Time: 09:22 Progress Note Patient reevaluated has had much improved work of breathing. Cough is still present. Sitting comfortably in a recliner chair. D-dimer is slightly elevated will do CTA pulmonary after IV hydration. Patient had multiple reevaluations throughout her stay here in the emergency department. After her breathing treatment, steroids and Ativan she is doing much better. We will send her home with Rupert Sears for cough as well as antibiotics for her bibasilar pneumonia. Strict return precautions to include coming back if she gets short of breath again if she has increasing oxygen requirements or high fever. Patient verbalized understanding. All questions were sought and answered and she is stable for discharge. Initial ECG Impression Date: Aug 15, 2020 Initial ECG Impression Time: 07:17 Initial ECG Rate: 84 Initial ECG Rhythm: Normal Sinus Initial ECG Intervals: Normal Initial ECG Impression: Nonspecific Changes Comment RBBB Diagnostic Imaging Diagonstic Imaging: Xray, CT Plain Films/CT/US/NM/MRI: chest Comments [facility] [place], [place] NAME: KIERAN HAINES [facility] REC#: [id number] PT STATUS: REG ER : 1960 PHYSICIAN: THERESA COLLINS MD ADMIT DATE: 08/15/20/ER Draft Date of Exam:08/15/20 CT ANGIO CHEST W EXAMINATION: CT angiography of the chest. TECHNIQUE: Contrast enhanced thin section helical images were obtained through the chest with intravenous contrast timed for the optimal opacification of the arterial structures per CTA protocol. Post-processing, reconstructions and interpretation of angiographic images of the vessels was performed. 3D MIP reconstructions were performed and reviewed. All CT scans use one or more of the following dose optimizing techniques: automated exposure control, MA and/or KvP adjustment based on a patient size and exam type, or iterative reconstruction. HISTORY: Shortness of breath, hypoxia. COMPARISON: None available. FINDINGS: There is no pulmonary embolism. Distal subsegmental vessels are obscured by respiratory motion. There are bibasilar areas of consolidation and patchy nodularity, consistent with pneumonia. No edema. No pleural effusion. No pneumothorax. No suspicious nodules. There is no axillary or supraclavicular lymphadenopathy. 15 mm right lower paratracheal lymph node is likely reactive. Heart size is normal. There are mild coronary artery calcifications. No pericardial effusion. Aorta is normal in caliber. Limited views of the upper abdomen show steatosis. There are no suspicious osseus lesions. IMPRESSION: 1. No pulmonary embolism. 2. Bibasilar areas of consolidation and patchy nodularity, consistent with pneumonia. Dictated on workstation # [id number] Dict: 08/15/20 0931 Trans: 08/15/20 0938 CHARLIE [id number] Interpreted by: VINAYAK ULLOA MD Electronically signed by: [facility] [place] NAME: KIERAN HAINES [facility] REC#: [id number] PT STATUS: REG ER : 1960 PHYSICIAN: THERESA COLLINS MD ADMIT DATE: 08/15/20/ER Draft Date of Exam:08/15/20 CHEST 1 VIEW, AP/PA ONLY INDICATION: Shortness of breath. Time of exam: 6:50 AM Correlation is made with prior exam from 05/17/2018. Heart size is normal. Lungs appear to be clear although there is some minimal density in the right base. Minimal infiltrate at this location cannot be excluded. There is no effusion or pneumothorax. IMPRESSION: Questionable minimal right basilar infiltrate. Dictated on workstation # [id number] Dict: 08/15/20 0752 Trans: 08/15/20 0754 MEGHNA [id number] Interpreted by: KIMANI RINCON MD Electronically signed by: Departure Impression Primary Impression: Pneumonia Qualified Codes: J18.9 - Pneumonia, unspecified organism Disposition: 01 HOME, SELF-CARE Condition: Stable Departure-Patient Inst. Decision time for Depature: 10:52 Referrals: MERNA NIXON MD (PCP/Family) Primary Care Physician Patient Instructions: Pneumonia, Adult (DC) Add. Discharge Instructions: Please call your primary care doctor for a follow-up appointment later this week or early next week. Use your breathing treatments at home every 4-6 hours and as needed for increasing shortness of breath. Take the antibiotics as prescribed for the next 7 days. Return to the emergency room if you have any increasing shortness of breath, high fever, chest pain or any other emergent concerning symptoms. Scripts Doxycycline Hyclate (Doxycycline Hyclate) 100 Mg Tablet 100 MG PO BID, #14 TAB 0 Refills Prov: THERESA COLLINS MD 08/15/20 Amoxicillin/Potassium Clav (Augmentin 875-125 Tablet) 1 Each Tablet 1 EACH PO BID, #10 TAB 0 Refills Prov: THERESA COLLINS MD 08/15/20 Benzonatate (TESSALON PERLES) 100 Mg Capsule 200 MG PO Q8H PRN for cough, #30 CAP Prov: THERESA COLLINS MD 08/15/20 THERESA COLLINS MD Aug 15, 2020 06:21
[2020-08-15] MEDS ORDERED: LORazepam INJ 2 MG/ML (ATIVAN) VIAL IVP PRN (06:30)
[2020-08-15 06:39] LABS: ABG BASE EXCESS 1.6 MMOL/L (-2.5-2.5); ABG OXYGEN SATURATION 93 % (94-100); ABG PCO2 38 MMHG (35-45); ABG PH 7.44 (7.37-7.43); ABG PO2 69 MMHG (79-93); ABG TCO2 26.4 MMOL/L (21.0-31.0)
[2020-08-15 06:40] LABS: ALLENS TEST YES-POS; INSPIRED O2 4L; PATIENT TEMP 37.4; VENTILATOR NO
[2020-08-15 06:45] LABS: BASOPHILS % (AUTO) 0 % (0-10); EOSINOPHILS # (AUTO) 0.1 10^3/uL (0.0-0.3); EOSINOPHILS % (AUTO) 1 % (0-10); HEMATOCRIT 40 % (35-52); HEMOGLOBIN 12.4 g/dL (11.5-16.0); LYMPHOCYTES # (AUTO) 1.2 10^3/uL (1.0-4.0); LYMPHOCYTES % (AUTO) 13 % (12-44); MEAN CORPUSCULAR HEMOGLOBIN 27 pg (25-34); MEAN CORPUSCULAR HGB CONC 31 g/dL (32-36); MEAN CORPUSCULAR VOLUME 89 fL (80-99); MEAN PLATELET VOLUME 10.8 fL (9.0-12.2); MONOCYTES # (AUTO) 0.3 10^3/uL (0.0-1.0); MONOCYTES % (AUTO) 3 % (0-12); NEUTROPHILS # (AUTO) 7.4 10^3/uL (1.8-7.8); NEUTROPHILS % (AUTO) 82 % (42-75); PLATELET COUNT 158 10^3/uL (130-400)
[2020-08-15 06:54] LABS: CHLORIDE 102 MMOL/L (98-107); POTASSIUM 3.8 MMOL/L (3.6-5.0); SODIUM 141 MMOL/L (135-145)
[2020-08-15 06:55] LABS: CALCIUM 8.9 MG/DL (8.5-10.1)
[2020-08-15 06:56] LABS: GLUCOSE 132 MG/DL (70-105)
[2020-08-15 06:57] LABS: CARBON DIOXIDE 24 MMOL/L (21-32)
[2020-08-15 07:00] LABS: CREATININE SERUM 1.29 MG/DL (0.60-1.30); GFR ESTIMATED 42
[2020-08-15 07:01] LABS: BUN/CREATININE RATIO 8
[2020-08-15 07:02] LABS: CREATINE KINASE 50 U/L (29-168)
[2020-08-15 07:08] LABS: CREATINE KINASE MB 1.2 NG/ML (<6.6)
[2020-08-15] MEDS ORDERED: NS IV 1000 ML 1,000 ML IV SCH (07:15)
--- NOTE | 2020-08-15 07:54 | Diagnostic Imaging Report ---
INDICATION: Shortness of breath. Time of exam: 6:50 AM Correlation is made with prior exam from 05/17/2018. Heart size is normal. Lungs appear to be clear although there is some minimal density in the right base. Minimal infiltrate at this location cannot be excluded. There is no effusion or pneumothorax. IMPRESSION: Questionable minimal right basilar infiltrate. Dictated by: Dictated on workstation # [id number]
[2020-08-15] MEDS ORDERED: methylPREDNISolone 125 MG (Solu-MEDROL) VIAL IVP ONE (08:30)
[2020-08-15] MEDS ORDERED: HOLD METFORMIN - RECEIVED CONTRAST 20 ML VIAL IV SCH (09:15)
[2020-08-15] MEDS ORDERED: NS 100 ML (IVPB) BAG IV ONE (09:15)
[2020-08-15] MEDS ORDERED: IOHEXOL 350 MG/ML 100 ML (OMNIPAQUE 350) VIAL IV ONE (09:15)
--- NOTE | 2020-08-15 09:39 | Diagnostic Imaging Report ---
EXAMINATION: CT angiography of the chest. TECHNIQUE: Contrast enhanced thin section helical images were obtained through the chest with intravenous contrast timed for the optimal opacification of the arterial structures per CTA protocol. Post-processing, reconstructions and interpretation of angiographic images of the vessels was performed. 3D MIP reconstructions were performed and reviewed. All CT scans use one or more of the following dose optimizing techniques: automated exposure control, MA and/or KvP adjustment based on a patient size and exam type, or iterative reconstruction. HISTORY: Shortness of breath, hypoxia. COMPARISON: None available. FINDINGS: There is no pulmonary embolism. Distal subsegmental vessels are obscured by respiratory motion. There are bibasilar areas of consolidation and patchy nodularity, consistent with pneumonia. No edema. No pleural effusion. No pneumothorax. No suspicious nodules. There is no axillary or supraclavicular lymphadenopathy. 15 mm right lower paratracheal lymph node is likely reactive. Heart size is normal. There are mild coronary artery calcifications. No pericardial effusion. Aorta is normal in caliber. Limited views of the upper abdomen show steatosis. There are no suspicious osseus lesions. IMPRESSION: 1. No pulmonary embolism. 2. Bibasilar areas of consolidation and patchy nodularity, consistent with pneumonia. Dictated by: Dictated on workstation # [id number]
[2020-08-15] MEDS ORDERED: NS IV 500 ML 500 ML IV SCH (10:15)
[2020-08-15] MEDS ORDERED: AMOX-358 PO (10:55)
[2020-08-15] MEDS ORDERED: BENZ100C18 PO (10:55)
[2020-08-15] MEDS ORDERED: DOXY100T2 PO (10:55)
[2020-08-15 12:11] VITALS: BP 140/68
== END 2020-08-15 12:15 | disposition home or self-care (01) ==
LOC: EDUNIT# 06:04 → ER 06:06
DX: J18.9 Pneumonia, unspecified organism (principal); E66.01 Morbid (severe) obesity due to excess calories; E78.00 Pure hypercholesterolemia, unspecified; J44.9 Chronic obstructive pulmonary disease, unspecified; I10 Essential (primary) hypertension; F41.9 Anxiety disorder, unspecified; F32.9 Major depressive disorder, single episode, unspecified; Z20.822 Contact with and (suspected) exposure to COVID-19; Z68.39 Body mass index [BMI] 39.0-39.9, adult; Z85.43 Personal history of malignant neoplasm of ovary; Z87.891 Personal history of nicotine dependence; Z82.49 Family history of ischemic heart disease and other diseases of the circulatory system; Z79.52 Long term (current) use of systemic steroids
CPT/HCPCS: 71045; 71275; 80048; 82550; 82553; 82805; 84484; 85025; 85379; 93005; 94640; 99284; U0002; 36415; 87635

== ENCOUNTER → 2020-08-24 | Outpatient (CLI) | payer MEDICAID ==
[~2020-08-24] MED LIST changes: +AMOX-358 PO; +BENZ100C18 PO; +DOXY100T2 PO
== END ==
LOC: LABNPT 08:29
DX: Z01.812 Encounter for preprocedural laboratory examination (principal); J44.9 Chronic obstructive pulmonary disease, unspecified; Z20.822 Contact with and (suspected) exposure to COVID-19
CPT/HCPCS: 87635

== ENCOUNTER → 2020-09-21 | Outpatient (CLI) | payer MEDICAID | LOC: LABNPT 08:55 | PROVIDERS: ATTEND Family Medicine | DX: J44.9 Chronic obstructive pulmonary disease, unspecified (principal); Z20.822 Contact with and (suspected) exposure to COVID-19 | CPT/HCPCS: 87635 ==

== ENCOUNTER 2020-09-24 19:34 | Outpatient (CLI) | payer MEDICAID | END 2020-09-25 06:52 | disposition home or self-care (01) | LOC: SLEEP 19:34 | PROVIDERS: ATTEND Pediatrics | DX: G47.33 Obstructive sleep apnea (adult) (pediatric) (principal); G47.10 Hypersomnia, unspecified | CPT/HCPCS: 95810 ==

== ENCOUNTER → 2020-10-05 | Outpatient (CLI) | payer MEDICAID ==
[~2020-10-05] MED LIST changes: +RT-ALBUTEROL SULF 2.5 MG/3 ML PRE-MIX VIAL INH ONE
== END ==
LOC: RT 07:30
PROVIDERS: ATTEND Nurse Practitioner Family
DX: J44.9 Chronic obstructive pulmonary disease, unspecified (principal)
CPT/HCPCS: 94060; 94726; 94729

== ENCOUNTER → 2020-10-05 | Outpatient (CLI) | payer MEDICAID ==
[~2020-10-05] MED LIST changes: -RT-ALBUTEROL SULF 2.5 MG/3 ML PRE-MIX VIAL INH ONE
--- NOTE | 2020-10-05 09:12 | Diagnostic Imaging Report ---
EXAMINATION: CT chest without contrast. TECHNIQUE: Multiple contiguous axial images were obtained through the chest without the use of intravenous contrast. All CT scans use one or more of the following dose optimizing techniques: automated exposure control, MA and/or KvP adjustment based on patient size and exam type or iterative reconstruction. HISTORY: Shortness of breath. COMPARISON: 08/15/2020. FINDINGS: The heart size is within normal limits. No pericardial effusion is present. Stable prominent mediastinal lymph nodes, with the largest in the right paratracheal station measuring 1.3 cm. Hazy opacities and tree-in-bud nodularity are seen throughout the right lung with the greatest distribution in the right middle and upper lobes. No focal consolidation is seen. No suspicious pulmonary mass or nodularity. No central endobronchial obstructing lesions are identified. There is no pleural effusion or pneumothorax. The osseous structures demonstrate no acute abnormalities. There is hepatic steatosis. Both adrenal glands are unremarkable. IMPRESSION: 1. Hazy opacities with tree-in-bud nodularity in the right lung, favored to represent inflammatory or infectious process. No pleural effusion. Recommend followup as indicated. 2. Hepatic steatosis. Dictated by: Dictated on workstation # [id number]
== END ==
LOC: CARD 08:00
PROVIDERS: ATTEND Pediatrics
DX: J44.9 Chronic obstructive pulmonary disease, unspecified (principal); I27.21 Secondary pulmonary arterial hypertension; K76.0 Fatty (change of) liver, not elsewhere classified; R91.8 Other nonspecific abnormal finding of lung field; I51.7 Cardiomegaly; I35.1 Nonrheumatic aortic (valve) insufficiency
CPT/HCPCS: 71250; 93306

== ENCOUNTER → 2022-01-22 | Outpatient (CLI) | payer MEDICAID ==
[~2022-01-22] MED LIST changes: +CYCL10TA25 PO
--- NOTE | 2022-01-22 16:50 | Diagnostic Imaging Report ---
EXAMINATION: CT chest without contrast. TECHNIQUE: Multiple contiguous axial images were obtained through the chest without the use of intravenous contrast. All CT scans use one or more of the following dose optimizing techniques: automated exposure control, MA and/or KvP adjustment based on patient size and exam type or iterative reconstruction. HISTORY: Abnormal chest CT. Interstitial lung disease. COMPARISON: 10/05/2020. FINDINGS: The heart size is within normal limits. No pericardial effusion is present. There is no mediastinal, hilar, or axillary lymphadenopathy. There has been interval improved aeration in the right lung with minimal residual tree-in-bud opacities in the right upper lobe. No suspicious pulmonary nodules. There are no focal areas of consolidation. No central endobronchial obstructing lesions are identified. There is no pleural effusion or pneumothorax. The osseous structures demonstrate no acute abnormalities. There is hepatic steatosis. Focal fatty sparing is seen in the gallbladder fossa. Both adrenal glands are unremarkable. IMPRESSION: 1. Improved aeration in the right lung with minimal residual tree-in-bud opacities in the right upper lobe. Findings likely represent improved inflammatory or infectious process. 2. Hepatic steatosis. Dictated by: Dictated on workstation # [id number]
== END ==
LOC: RAD 14:14
PROVIDERS: ATTEND Internal Medicine Critical Care Medicine
DX: K76.0 Fatty (change of) liver, not elsewhere classified (principal); J84.9 Interstitial pulmonary disease, unspecified; R91.8 Other nonspecific abnormal finding of lung field
CPT/HCPCS: 71250

== ENCOUNTER 2022-02-12 06:17 | Outpatient (CLI) | payer MEDICAID ==
[~2022-02-12] VITALS: Ht 170.2 cm; Wt 131.5 kg
[2022-02-12] MEDS ORDERED: LISI5TAB20 PO (10:06)
[2022-02-12] MEDS ORDERED: PREG100C PO (10:06)
[2022-02-12] MEDS ORDERED: CETI10TA17 PO (10:06)
[2022-02-12] MEDS ORDERED: LAMO200T5 PO (10:06)
== END 2022-02-12 10:10 | disposition home or self-care (01) ==
LOC: PREOP 06:17
PROVIDERS: ATTEND Surgery
DX: Z01.818 Encounter for other preprocedural examination (principal)

== ENCOUNTER 2022-03-11 11:13 | Day surgery (SDC) | payer MEDICAID ==
[2022-03-11] VITALS (8 sets, daily range): BP systolic 99–156; BP diastolic 50–73
[~2022-03-11] VITALS: Ht 170 cm; Wt 131.5 kg
[~2022-03-11 11:13] MED LIST changes: +ALBU8.5H6 INH; +CETI10TA17 PO; +LACTATED RINGERS 1,000 ML IV STA; +LAMO200T5 PO; +LISI5TAB20 PO; +PREG100C PO; -RT-ALBUINH INH
[2022-03-11] MEDS ORDERED: PROPOFOL INJECTION 50 ML IV ONE (11:55)
[2022-03-11] MEDS ORDERED: MIDAZOLAM 2 MG/2 ML (VERSED) VIAL ONE (11:55)
[2022-03-11] MEDS ORDERED: LACTATED RINGERS 1,000 ML IV ONE (11:58)
--- NOTE | 2022-03-11 12:25 | Progress Note-Post Operative ---
Post-Operative Progess Note Surgeon (s)/Laborer Carpentry Dock (s) Surgeon DENISHA SAENZ DO Laborer Carpentry Dock: Rick Lovelace, MSIV Pre-Operative Diagnosis +Cologuard Post-Operative Diagnosis Poor prep int hemorrhoids Procedure & Operative Findings Date of Procedure 03/11/22 Procedure Performed/Findings Colonoscopy PROCEDURE NOTE: After informed consent was obtained, the patient was brought to the endoscopy suite, placed in bed in left lateral decubitus position. She was administered IV sedation by the TENT WORKER who then monitored her vitals the entire time, heart rate, blood pressure and pulse ox and the scope was inserted. Immediately upon entering noted fecal material covering the verdugo. Tried flushing it off and began pushing towards the cecum. Unfortunately, the stool covered everything all the way to the ascending colon. I had pushed in about 140cm and never saw any clear colon. Tried flushing with 2 bottles of saline and suctioning it up, but just could not get all of it. Yesterday, pt was scheduled but said she had formed BMs and we had her do another day of clears and Mg Citrate (so she did a two day prep); still not clean. Took a picture of the stool covered verdugo and elected to slowly withdraw the scope from ascending colon; insufflating to look circumferentially at the verdugo. Up the ascending colon to the hepatic flexure, then down the transverse colon, splenic flexure, into the descending colon down in the sigmoid and then into the rectal vault; took picture of the internal hemorrhoids. The patient tolerated the procedure. She was recovered in endoscopy suite. Recommended for repeat colonoscopy soon, will have to try a different prep. Anesthesia Type IV sedation by TENT WORKER Estimated Blood Loss Estimated blood loss (mL): scant Specimens/Packing Specimens Removed none DENISHA SAENZ DO Mar 11, 2022 12:25
--- NOTE | 2022-03-11 12:26 | Endoscopy Discharge Instruct ---
Endo Procedure/Findings Findings 1.: Other Findings (Poor prep) 2.: Internal Hemorrhoids Discharge Instructions - Activity: You might feel a little sleepy until tomorrow. This is due to the medicine you received to relax you. Until tomorrow, you should: NOT drive a car, operate machinery or power tools. NOT drink any alcoholic beverages. NOT make any important decisions or sign importortant papers. Do not return to work until tomorrow, unless otherwise instructed. Resume previous activities tomorrow. Diet: Start by taking liquids. If you tolerate liquids, advance to solid food. 1.: Other Recommendation (Colonoscopy soon, with different prep) Notify Physician - If you experience excessive bleeding, unusual abdominal pain, fever, or chest pain, contact your doctor immediately. DENISHA SAENZ DO Mar 11, 2022 12:26
--- NOTE | 2022-03-11 13:44 | Anesthesia-General Post-Op ---
MAC Patient Condition Mental Status/LOC: Same as Preop Cardiovascular: Satisfactory Nausea/Vomiting: Absent Respiratory: Satisfactory Pain: Controlled Complications: Absent Post Op Complications Complications None Follow Up Care/Instructions Patient Instructions None needed. Anesthesiology Discharge Order Discharge Order Patient is doing well, no complaints, stable vital signs, no apparent adverse anesthesia problems. No complications reported per nursing. MERLIN HERNANDEZ CRNA Mar 11, 2022 13:44
== END 2022-03-11 11:35 | disposition home or self-care (01) ==
LOC: ENDO 11:13
PROVIDERS: ATTEND Surgery
DX: K64.8 Other hemorrhoids (principal); E66.01 Morbid (severe) obesity due to excess calories; Z68.42 Body mass index [BMI] 45.0-49.9, adult; Z87.891 Personal history of nicotine dependence

== ENCOUNTER 2022-10-01 05:38 | Outpatient (CLI) | payer MEDICAID ==
[~2022-10-01] VITALS: Ht 170.2 cm; Wt 131.5 kg
[~2022-10-01 05:38] MED LIST changes: -LACTATED RINGERS 1,000 ML IV STA
[2022-10-01] MEDS ORDERED: ATEN25TA PO (19:20)
[2022-10-01] MEDS ORDERED: MONT-40 PO (19:20)
[2022-10-01] MEDS ORDERED: BREX1TAB PO (19:20)
[2022-10-01] MEDS ORDERED: CLON0.5T4 PO (19:20)
[2022-10-01] MEDS ORDERED: FURO20TA4 PO (19:20)
[2022-10-01] MEDS ORDERED: AMIT50TA3 PO (19:20)
[2022-10-01] MEDS ORDERED: FLUT1BLS12 IH (19:20)
== END 2022-10-01 19:23 ==
LOC: PREOP 05:38
PROVIDERS: ATTEND Surgery
DX: Z01.818 Encounter for other preprocedural examination (principal)

== ENCOUNTER 2022-10-13 09:57 | Day surgery (SDC) | payer MEDICAID ==
[~2022-10-13] VITALS: Ht 170.2 cm; Wt 131.5 kg
[~2022-10-13 09:57] MED LIST changes: +AMIT50TA3 PO; +ATEN25TA PO; +BREX1TAB PO; +CLON0.5T4 PO; +FLUT1BLS12 IH; +MONT-40 PO
--- NOTE | 2022-10-13 10:40 | Progress Note-Pre Operative ---
Pre-Operative Progress Note Date of Available H&P: September 18, 2022 Date H&P Reviewed: Oct 13, 2022 Time H&P Reviewed: 10:37 History & Physical: H&P Reviewed, Patient Examed, No changes noted Pre-Operative Diagnosis: +CologDENISHA Willard DO Oct 13, 2022 10:40
[2022-10-13] MEDS ORDERED: LACTATED RINGERS 1,000 ML IV STA (10:42)
[2022-10-13 10:50] VITALS: BP 139/74
[2022-10-13] MEDS ORDERED: MIDAZOLAM 2 MG/2 ML (VERSED) VIAL ONE (11:07)
[2022-10-13] MEDS ORDERED: PROPOFOL INJECTION 50 ML IV ONE (11:07)
[2022-10-13 11:20] VITALS: BP 142/75
--- NOTE | 2022-10-13 11:21 | Progress Note-Post Operative ---
Post-Operative Progess Note Surgeon (s)/Aircraft Launch And Recovery Technician (s) Surgeon DENISHA SAENZ DO Aircraft Launch And Recovery Technician: none Pre-Operative Diagnosis +Cologuard Post-Operative Diagnosis same plus poor prep Procedure & Operative Findings Date of Procedure 10/13/22 Procedure Performed/Findings Colonoscopy cut short PROCEDURE NOTE: After informed consent was obtained, the patient was brought to the endoscopy suite, placed in bed in left lateral decubitus position. She was administered IV sedation by the ENRICHMENT SPECIALIST who then monitored her vitals the entire time, heart rate, blood pressure and pulse ox and the scope was inserted. Unfortunately, immediately upon entering encountered a large fecal ball. I pushed up to the splenic flexure, but there was fully formed fecal material all the way up. At this point I stopped and removed the scope. The patient tolerated the procedure. She was recovered in endoscopy suite. Recommended for repeat colonoscopy in 1-2 months, may need 2 day prep. Anesthesia Type IV sedation by ENRICHMENT SPECIALIST Estimated Blood Loss Estimated blood loss (mL): none Specimens/Packing Specimens Removed none DENISHA SAENZ DO Oct 13, 2022 11:21
--- NOTE | 2022-10-13 11:22 | Endoscopy Discharge Instruct ---
Endo Procedure/Findings Findings 1.: Other Findings (Poor prep) Discharge Instructions - Activity: You might feel a little sleepy until tomorrow. This is due to the medicine you received to relax you. Until tomorrow, you should: NOT drive a car, operate machinery or power tools. NOT drink any alcoholic beverages. NOT make any important decisions or sign importortant papers. Do not return to work until tomorrow, unless otherwise instructed. Resume previous activities tomorrow. Diet: Start by taking liquids. If you tolerate liquids, advance to solid food. 1.: Other Recommendation (colonoscopy in 1-2 months with 2 day prep) Notify Physician - If you experience excessive bleeding, unusual abdominal pain, fever, or chest pain, contact your doctor immediately. Follow-Up: Other Follow up in my office in one week DENISHA SAENZ DO Oct 13, 2022 11:22
[2022-10-13 11:24] VITALS: BP 136/76
[2022-10-13 11:30] VITALS: BP 134/67
--- NOTE | 2022-10-13 13:09 | Anesthesia-General Post-Op ---
MAC Patient Condition Mental Status/LOC: Same as Preop Cardiovascular: Satisfactory Nausea/Vomiting: Absent Respiratory: Satisfactory Pain: Controlled Complications: Absent Post Op Complications Complications None Follow Up Care/Instructions Patient Instructions None needed. Anesthesiology Discharge Order Discharge Order Patient is doing well, no complaints, stable vital signs, no apparent adverse anesthesia problems. No complications reported per nursing. KELLI MCKEON CRNA Oct 13, 2022 13:09
[2022-10-13 13:15] VITALS: BP 134/67
== END 2022-10-13 13:15 | disposition home or self-care (01) ==
LOC: ENDO 09:57
PROVIDERS: ATTEND Surgery
DX: Z12.11 Encounter for screening for malignant neoplasm of colon (principal); R19.5 Other fecal abnormalities; J44.9 Chronic obstructive pulmonary disease, unspecified; E66.9 Obesity, unspecified; Z68.42 Body mass index [BMI] 45.0-49.9, adult; Z87.891 Personal history of nicotine dependence; Z99.81 Dependence on supplemental oxygen